=== PATIENT | female | born 1985 | race Two or more races ===

== ENCOUNTER 2020-10-08 03:29 | Emergency (ER) | payer MEDICAID, OTHER ==
[~2020-10-08] VITALS: Ht 162.6 cm; Wt 136.1 kg
[2020-10-08 03:35] VITALS: BP 142/85
== END 2020-10-08 06:10 | disposition left against medical advice (07) ==
LOC: ER 03:29
DX: R21 Rash and other nonspecific skin eruption (principal); Z53.21 Procedure and treatment not carried out due to patient leaving prior to being seen by health care provider